=== PATIENT | female | born 1955 | race Asian ===

== ENCOUNTER 2017-07-23 09:47 | Inpatient (IN) | payer OTHER ==
[2017-07-23 10:39] LABS: ADD MAN DIFF? NO
[2017-07-23] MEDS: IBUPROFEN 800 MG TAB PO (10:39)
[2017-07-23] MEDS: morphine 4 MG/ML VIAL IV (10:39)
[2017-07-23] MEDS: ACETAMINOPHEN 325 MG TAB PO (10:39)
[2017-07-23] MEDS: ONDANSETRON 4 MG INJ IV ×3 (10:39→18:17)
[2017-07-23] MEDS: CEFTRIAXONE 1 GM/50 ML (PMX) 50 ML IVPB (10:40)
[2017-07-23] MEDS: SODIUM CHLORIDE 0.9% 1L BAG IV* (10:41)
[2017-07-23 10:43] LABS: WHITE BLOOD COUNT 12.7 10^3/ul (4.8-10.8)
[2017-07-23 10:43] LABS: BASOPHILS % 0.3 % (0.0-2.0); EOSINOPHILS # 0.2 10^3/ul (0.0-0.5); EOSINOPHILS % 1.8 % (0.0-7.0); HEMATOCRIT 37.4 % (37.0-47.0); HEMOGLOBIN 12.8 g/dl (12.0-16.0); LYMPHOCYTES # 1.5 10^3/ul (0.8-2.9); MEAN CORPUSCULAR HEMOGLOBIN 28.4 pg (29.0-33.0); MEAN CORPUSCULAR HGB CONC 34.2 g/dl (32.0-37.0); MEAN CORPUSCULAR VOLUME 82.9 fl (82.0-101.0); MEAN PLATELET VOLUME 10.1 fl (7.4-10.4); MONOCYTE # 0.8 10^3/ul (0.3-0.9); MONOCYTES % 6.4 % (0.0-11.0); NEUTROPHILS % 78.9 % (39.0-77.0); PLATELET COUNT 248 10^3/UL (140-415); RED BLOOD COUNT 4.51 10^6/ul (4.20-5.40); RED CELL DISTRIBUTION WIDTH 13.2 % (11.5-14.5)
[2017-07-23 11:06] LABS: ALANINE AMINOTRANSFERASE 25 IU/L (13-69); ALBUMIN 4.5 g/dl (3.3-4.9); ALBUMIN/GLOBULIN RATIO 1.18; ALKALINE PHOSPHATASE 100 IU/L (42-121); ANION GAP 20 (8-16); ASPARTATE AMINO TRANSFERASE 24 IU/L (15-46); BILIRUBIN,INDIRECT 0.4 mg/dl (0-1.1); BILIRUBIN,TOTAL 0.4 mg/dl (0.2-1.3); BLOOD UREA NITROGEN 11 mg/dl (7-20); CALCIUM 9.3 mg/dl (8.4-10.2); CARBON DIOXIDE 24 mmol/L (21-31); CHLORIDE 105 mmol/L (97-110); CREATININE 0.97 mg/dl (0.44-1.00); GLUCOSE 91 mg/dl (70-220); POTASSIUM 3.8 mmol/L (3.5-5.1); SODIUM 145 mmol/L (135-144); TOTAL PROTEIN 8.3 g/dl (6.1-8.1)
[2017-07-23 11:07] LABS: LACTIC ACID 1.7 mmol/L (0.5-2.0)
[2017-07-23] MEDS ORDERED: METHYLPREDNISOLONE 125 MG INJ (11:21)
[2017-07-23 11:22] LABS: TROPONIN-I < 0.012 ng/ml (0.00-0.12)
[2017-07-23 11:23] LABS: INR 0.98; PROTIME 13.1 Sec (11.9-14.9)
[2017-07-23 11:32] LABS: ADD UMIC YES; UR ASCORBIC ACID NEGATIVE (NEGATIVE); UR BILIRUBIN (Dip) NEGATIVE (NEGATIVE); UR BLOOD (Dip) NEGATIVE (NEGATIVE); UR CLARITY CLEAR (CLEAR); UR COLOR STRAW (YELLOW); UR GLUCOSE (Dip) NEGATIVE (NEGATIVE); UR KETONES (Dip) TRACE mg/dL (NEGATIVE); UR LEUKOCYTE ESTERASE (Dip) TRACE Leu/ul (NEGATIVE); UR NITRITE (Dip) NEGATIVE (NEGATIVE); UR RBC 1 /HPF (0-5); UR SPECIFIC GRAVITY (Dip) 1.006 (1.003-1.030); UR SQUAMOUS EPITHELIAL CELL FEW /HPF (FEW); UR TOTAL PROTEIN (Dip) NEGATIVE (NEGATIVE); UR UROBILINOGEN (Dip) NEGATIVE (NEGATIVE); UR WBC 7 /HPF (0-5)
[2017-07-23 13:26] LABS: LACTIC ACID 0.9 mmol/L (0.5-2.0)
[2017-07-23] MEDS ORDERED: ONDANSETRON 4 MG INJ IV (13:30)
[2017-07-23] MEDS ORDERED: ACETAMINOPHEN 325 MG TAB PO (13:30)
[2017-07-23] MEDS: ATENOLOL 50 MG TAB PO (15:00)
[2017-07-23] MEDS ORDERED: NAPROXEN 500 MG TAB PO (15:00)
[2017-07-23] MEDS: ASPIRIN (EC) 81 MG TAB PO (15:00)
[2017-07-23] MEDS: CALCIUM/VITAMIN D (500/200) TAB PO ×2 (15:00→20:33)
[2017-07-23 15:21] LABS: LACTIC ACID 1.5 mmol/L (0.5-2.0)
[2017-07-23] MEDS: DEXTROSE 5% 1,000 ML IV (18:17)
[2017-07-23] MEDS: OXYBUTYNIN 5 MG TAB PO (20:32)
[2017-07-23] MEDS: QUETIAPINE 25 MG TAB PO (20:33)
[2017-07-23] MEDS ORDERED: NON-FORMULARY/PATIENT OWN MED (Oxybutynin Chloride* 5 MG) PO (21:00)
[2017-07-23] MEDS: metroNIDAZOLE 500 MG/NS (PMX) 100 ML IVPB (21:29)
[2017-07-24] MEDS: morphine 2 MG INJ IV (01:36)
[2017-07-24] MEDS: DEXTROSE 5% 1,000 ML IV (05:18)
[2017-07-24 05:52] LABS: ADD MAN DIFF? NO
[2017-07-24 05:55] LABS: WHITE BLOOD COUNT 8.4 10^3/ul (4.8-10.8)
[2017-07-24 05:55] LABS: BASOPHILS % 0.4 % (0.0-2.0); EOSINOPHILS # 0.1 10^3/ul (0.0-0.5); EOSINOPHILS % 1.1 % (0.0-7.0); HEMATOCRIT 31.6 % (37.0-47.0); HEMOGLOBIN 10.9 g/dl (12.0-16.0); LYMPHOCYTES # 1.5 10^3/ul (0.8-2.9); LYMPHOCYTES % 17.5 % (15.0-51.0); MEAN CORPUSCULAR HEMOGLOBIN 28.5 pg (29.0-33.0); MEAN CORPUSCULAR HGB CONC 34.5 g/dl (32.0-37.0); MEAN CORPUSCULAR VOLUME 82.7 fl (82.0-101.0); MEAN PLATELET VOLUME 10.1 fl (7.4-10.4); MONOCYTE # 0.4 10^3/ul (0.3-0.9); NEUTROPHIL # 6.4 10^3/ul (1.6-7.5); NEUTROPHILS % 75.6 % (39.0-77.0); PLATELET COUNT 220 10^3/UL (140-415); RED BLOOD COUNT 3.82 10^6/ul (4.20-5.40); RED CELL DISTRIBUTION WIDTH 13.2 % (11.5-14.5)
[2017-07-24] MEDS: PANTOPRAZOLE 40 MG INJ IV (06:08)
[2017-07-24] MEDS: metroNIDAZOLE 500 MG/NS (PMX) 100 ML IVPB ×3 (06:09→21:51)
[2017-07-24 06:15] LABS: LACTIC ACID 0.9 mmol/L (0.5-2.0)
[2017-07-24 06:25] LABS: ALANINE AMINOTRANSFERASE 20 IU/L (13-69); ALBUMIN 3.8 g/dl (3.3-4.9); ALBUMIN/GLOBULIN RATIO 1.26; ALKALINE PHOSPHATASE 77 IU/L (42-121); ANION GAP 17 (8-16); ASPARTATE AMINO TRANSFERASE 25 IU/L (15-46); BILIRUBIN,INDIRECT 0.4 mg/dl (0-1.1); BILIRUBIN,TOTAL 0.4 mg/dl (0.2-1.3); BLOOD UREA NITROGEN 9 mg/dl (7-20); CALCIUM 8.9 mg/dl (8.4-10.2); CARBON DIOXIDE 24 mmol/L (21-31); CHLORIDE 105 mmol/L (97-110); CREATININE 0.96 mg/dl (0.44-1.00); GLUCOSE 111 mg/dl (70-220); POTASSIUM 3.8 mmol/L (3.5-5.1); SODIUM 142 mmol/L (135-144); TOTAL PROTEIN 6.8 g/dl (6.1-8.1)
[2017-07-24] MEDS ORDERED: NON-FORMULARY/PATIENT OWN MED (Omeprazole* 20 MG) PO (09:00)
[2017-07-24] MEDS ORDERED: DOCUSATE SODIUM 100 MG CAP PO (09:00)
[2017-07-24] MEDS: CEFTRIAXONE 1 GM/50 ML (PMX) 50 ML IVPB (09:27)
[2017-07-24] MEDS: ATENOLOL 50 MG TAB PO (09:27)
[2017-07-24] MEDS: OXYBUTYNIN 5 MG TAB PO ×3 (09:27→21:00)
[2017-07-24] MEDS: ASPIRIN (EC) 81 MG TAB PO (09:27)
[2017-07-24] MEDS: CALCIUM/VITAMIN D (500/200) TAB PO ×2 (09:28→21:51)
[2017-07-24] MEDS: QUETIAPINE 100 MG TAB PO (09:28)
[2017-07-24] MEDS: ESCITALOPRAM 10 MG TAB PO (09:28)
[2017-07-24 10:35] LABS: ADD MAN DIFF? NO
[2017-07-24 10:38] LABS: BASOPHILS % 0.2 % (0.0-2.0); EOSINOPHILS # 0.1 10^3/ul (0.0-0.5); EOSINOPHILS % 1.2 % (0.0-7.0); HEMATOCRIT 31.3 % (37.0-47.0); HEMOGLOBIN 10.7 g/dl (12.0-16.0); LYMPHOCYTES # 2.9 10^3/ul (0.8-2.9); LYMPHOCYTES % 32.4 % (15.0-51.0); MEAN CORPUSCULAR HEMOGLOBIN 28.4 pg (29.0-33.0); MEAN CORPUSCULAR HGB CONC 34.2 g/dl (32.0-37.0); MEAN PLATELET VOLUME 9.8 fl (7.4-10.4); MONOCYTE # 0.7 10^3/ul (0.3-0.9); MONOCYTES % 7.6 % (0.0-11.0); NEUTROPHIL # 5.3 10^3/ul (1.6-7.5); NEUTROPHILS % 58.4 % (39.0-77.0); PLATELET COUNT 195 10^3/UL (140-415); RED BLOOD COUNT 3.77 10^6/ul (4.20-5.40); RED CELL DISTRIBUTION WIDTH 13.2 % (11.5-14.5)
[2017-07-24 11:11] LABS: ANION GAP 16 (8-16); BLOOD UREA NITROGEN 10 mg/dl (7-20); CALCIUM 8.8 mg/dl (8.4-10.2); CARBON DIOXIDE 24 mmol/L (21-31); CHLORIDE 108 mmol/L (97-110); CREATININE 0.99 mg/dl (0.44-1.00); GLUCOSE 137 mg/dl (70-220); POTASSIUM 3.2 mmol/L (3.5-5.1); SODIUM 145 mmol/L (135-144)
[2017-07-24 11:18] LABS: LACTIC ACID 1.2 mmol/L (0.5-2.0)
[2017-07-24 11:29] LABS: TROPONIN-I < 0.012 ng/ml (0.00-0.12)
[2017-07-24] MEDS: DEXTROSE 5%-0.45% NACL 1,000 ML IV (13:30)
[2017-07-24] MEDS: POTASSIUM CHLORIDE 100 ML IVPB ×2 (14:39→16:55)
[2017-07-24] MEDS ORDERED: ACETAMINOPHEN 325 MG TAB PO (22:00)
[2017-07-25] MEDS: DEXTROSE 5%-0.45% NACL 1,000 ML IV ×2 (04:33→18:06)
[2017-07-25 05:36] LABS: ADD MAN DIFF? NO
[2017-07-25] MEDS: metroNIDAZOLE 500 MG/NS (PMX) 100 ML IVPB ×3 (05:40→22:18)
[2017-07-25] MEDS: PANTOPRAZOLE 40 MG INJ IV (05:41)
[2017-07-25 05:43] LABS: WHITE BLOOD COUNT 5.7 10^3/ul (4.8-10.8)
[2017-07-25 05:43] LABS: BASOPHILS % 0.4 % (0.0-2.0); EOSINOPHILS # 0.3 10^3/ul (0.0-0.5); EOSINOPHILS % 4.4 % (0.0-7.0); HEMATOCRIT 29.5 % (37.0-47.0); HEMOGLOBIN 9.9 g/dl (12.0-16.0); LYMPHOCYTES % 34.3 % (15.0-51.0); MEAN CORPUSCULAR HEMOGLOBIN 28.2 pg (29.0-33.0); MEAN CORPUSCULAR HGB CONC 33.6 g/dl (32.0-37.0); MONOCYTE # 0.6 10^3/ul (0.3-0.9); MONOCYTES % 10.7 % (0.0-11.0); NEUTROPHIL # 2.9 10^3/ul (1.6-7.5); PLATELET COUNT 206 10^3/UL (140-415); RED BLOOD COUNT 3.51 10^6/ul (4.20-5.40); RED CELL DISTRIBUTION WIDTH 13.3 % (11.5-14.5)
[2017-07-25 06:22] LABS: ANION GAP 16 (8-16); BLOOD UREA NITROGEN 11 mg/dl (7-20); CALCIUM 8.6 mg/dl (8.4-10.2); CARBON DIOXIDE 25 mmol/L (21-31); CHLORIDE 111 mmol/L (97-110); GLUCOSE 99 mg/dl (70-220); POTASSIUM 4.2 mmol/L (3.5-5.1); SODIUM 148 mmol/L (135-144)
[2017-07-25] MEDS: ASPIRIN (EC) 81 MG TAB PO (08:28)
[2017-07-25] MEDS: CALCIUM/VITAMIN D (500/200) TAB PO ×2 (08:30→20:23)
[2017-07-25] MEDS: OXYBUTYNIN 5 MG TAB PO ×3 (08:30→20:26)
[2017-07-25] MEDS: ATENOLOL 50 MG TAB PO (08:30)
[2017-07-25] MEDS: ESCITALOPRAM 10 MG TAB PO (08:30)
[2017-07-25] MEDS: CEFTRIAXONE 1 GM/50 ML (PMX) 50 ML IVPB (09:25)
[2017-07-25] MEDS: DEXTROSE 5% 500 ML IV (23:44)
[2017-07-26] MEDS: DEXTROSE 5% 1,000 ML IV (01:58)
[2017-07-26] MEDS: metroNIDAZOLE 500 MG/NS (PMX) 100 ML IVPB ×3 (06:07→22:45)
[2017-07-26] MEDS: PANTOPRAZOLE 40 MG INJ IV (06:07)
[2017-07-26 06:14] LABS: ADD MAN DIFF? NO
[2017-07-26 06:26] LABS: WHITE BLOOD COUNT 7.1 10^3/ul (4.8-10.8)
[2017-07-26 06:26] LABS: BASOPHILS % 0.6 % (0.0-2.0); EOSINOPHILS # 0.3 10^3/ul (0.0-0.5); EOSINOPHILS % 4.7 % (0.0-7.0); HEMATOCRIT 32.5 % (37.0-47.0); LYMPHOCYTES # 2.3 10^3/ul (0.8-2.9); LYMPHOCYTES % 33.1 % (15.0-51.0); MEAN CORPUSCULAR HEMOGLOBIN 28.1 pg (29.0-33.0); MEAN CORPUSCULAR HGB CONC 33.8 g/dl (32.0-37.0); MEAN CORPUSCULAR VOLUME 83.1 fl (82.0-101.0); MEAN PLATELET VOLUME 10.1 fl (7.4-10.4); MONOCYTE # 0.5 10^3/ul (0.3-0.9); MONOCYTES % 6.5 % (0.0-11.0); NEUTROPHIL # 3.9 10^3/ul (1.6-7.5); NEUTROPHILS % 54.7 % (39.0-77.0); PLATELET COUNT 249 10^3/UL (140-415); RED BLOOD COUNT 3.91 10^6/ul (4.20-5.40); RED CELL DISTRIBUTION WIDTH 12.9 % (11.5-14.5)
[2017-07-26 06:45] LABS: ALANINE AMINOTRANSFERASE 33 IU/L (13-69); ALBUMIN 4.2 g/dl (3.3-4.9); ALBUMIN/GLOBULIN RATIO 1.27; ALKALINE PHOSPHATASE 78 IU/L (42-121); ANION GAP 16 (8-16); ASPARTATE AMINO TRANSFERASE 28 IU/L (15-46); BLOOD UREA NITROGEN 9 mg/dl (7-20); CALCIUM 9.3 mg/dl (8.4-10.2); CARBON DIOXIDE 27 mmol/L (21-31); CHLORIDE 109 mmol/L (97-110); CREATININE 0.91 mg/dl (0.44-1.00); GLUCOSE 102 mg/dl (70-220); POTASSIUM 3.9 mmol/L (3.5-5.1); SODIUM 148 mmol/L (135-144); TOTAL PROTEIN 7.5 g/dl (6.1-8.1)
[2017-07-26] MEDS: ASPIRIN (EC) 81 MG TAB PO (08:52)
[2017-07-26] MEDS: OXYBUTYNIN 5 MG TAB PO ×3 (08:52→22:45)
[2017-07-26] MEDS: ATENOLOL 50 MG TAB PO (08:52)
[2017-07-26] MEDS: CALCIUM/VITAMIN D (500/200) TAB PO ×2 (08:52→22:45)
[2017-07-26] MEDS: CEFTRIAXONE 1 GM/50 ML (PMX) 50 ML IVPB (12:57)
[2017-07-27] MEDS: MECLIZINE 25 MG TAB PO (00:07)
[2017-07-27 06:13] LABS: ADD MAN DIFF? NO
[2017-07-27 06:23] LABS: BASOPHILS % 0.7 % (0.0-2.0); EOSINOPHILS # 0.2 10^3/ul (0.0-0.5); HEMATOCRIT 31.5 % (37.0-47.0); HEMOGLOBIN 10.7 g/dl (12.0-16.0); LYMPHOCYTES # 2.6 10^3/ul (0.8-2.9); LYMPHOCYTES % 46.8 % (15.0-51.0); MEAN CORPUSCULAR HEMOGLOBIN 27.9 pg (29.0-33.0); MEAN CORPUSCULAR VOLUME 82.2 fl (82.0-101.0); MEAN PLATELET VOLUME 10.2 fl (7.4-10.4); MONOCYTE # 0.5 10^3/ul (0.3-0.9); MONOCYTES % 9.2 % (0.0-11.0); NEUTROPHIL # 2.2 10^3/ul (1.6-7.5); NEUTROPHILS % 38.9 % (39.0-77.0); PLATELET COUNT 247 10^3/UL (140-415); RED BLOOD COUNT 3.83 10^6/ul (4.20-5.40); RED CELL DISTRIBUTION WIDTH 12.9 % (11.5-14.5)
[2017-07-27 06:23] LABS: WHITE BLOOD COUNT 5.6 10^3/ul (4.8-10.8)
[2017-07-27] MEDS: PANTOPRAZOLE 40 MG INJ IV (06:23)
[2017-07-27] MEDS: metroNIDAZOLE 500 MG/NS (PMX) 100 ML IVPB ×2 (06:24→13:46)
[2017-07-27 06:28] LABS: POSITIVE DIFF @See below
[2017-07-27 06:42] LABS: ALANINE AMINOTRANSFERASE 34 IU/L (13-69); ALBUMIN/GLOBULIN RATIO 1.25; ALKALINE PHOSPHATASE 69 IU/L (42-121); ANION GAP 16 (8-16); ASPARTATE AMINO TRANSFERASE 37 IU/L (15-46); BILIRUBIN,INDIRECT 0.1 mg/dl (0-1.1); BILIRUBIN,TOTAL 0.1 mg/dl (0.2-1.3); BLOOD UREA NITROGEN 12 mg/dl (7-20); CALCIUM 9.1 mg/dl (8.4-10.2); CARBON DIOXIDE 29 mmol/L (21-31); CHLORIDE 106 mmol/L (97-110); CREATININE 0.93 mg/dl (0.44-1.00); GLUCOSE 100 mg/dl (70-220); POTASSIUM 4.2 mmol/L (3.5-5.1); SODIUM 147 mmol/L (135-144); TOTAL PROTEIN 7.2 g/dl (6.1-8.1)
[2017-07-27] MEDS: OXYBUTYNIN 5 MG TAB PO ×2 (09:00→13:00)
[2017-07-27] MEDS: ATENOLOL 50 MG TAB PO (09:06)
[2017-07-27] MEDS: ASPIRIN (EC) 81 MG TAB PO (09:06)
[2017-07-27] MEDS: CALCIUM/VITAMIN D (500/200) TAB PO (09:07)
[2017-07-27] MEDS: CEFTRIAXONE 1 GM/50 ML (PMX) 50 ML IVPB (09:07)
== END 2017-07-27 20:45 | disposition home or self-care (01) | DRG 444 ==
LOC: E/R 09:47 → MS2 13:23
DX: K80.20 Calculus of gallbladder without cholecystitis without obstruction (principal); G92 Toxic encephalopathy; N39.0 Urinary tract infection, site not specified; E87.0 Hyperosmolality and hypernatremia; D64.9 Anemia, unspecified; I10 Essential (primary) hypertension; E87.6 Hypokalemia; E66.3 Overweight; N26.1 Atrophy of kidney (terminal); R32 Unspecified urinary incontinence; F32.9 Major depressive disorder, single episode, unspecified; R51 Headache; G89.29 Other chronic pain; M54.5 Low back pain; Z79.82 Long term (current) use of aspirin; T43.595A Adverse effect of other antipsychotics and neuroleptics, initial encounter; Y92.230 Patient room in hospital as the place of occurrence of the external cause
CPT/HCPCS: 36415; 70450; 71045; 74181; 76700; 80048; 80053; 81001; 82962; 83605; 84484; 85025; 85610; 85730; 87040; 87086; 87400; 93005; 96365; 96366; 96375; 96376; 99291-25